=== PATIENT | male | born 1955 | race Caucasian/White ===

== ENCOUNTER → 2020-02-22 | Outpatient (CLI) | payer OTHER ==
[~2020-02-22] MED LIST: ANTIVERT12.5 MG PO; ASPIRIN EC81 MG PO; COVID-19 VACC, MRNA(MODERNA)/PF 100 MCG/0.5 ML VIAL IM ONE; COZAAR100 MG PO; CRESTOR10 MG PEG; DIOVAN HCT 3201 EACH PO; HYDRALAZINE HCL10 MG PO; NIFEDIPINE ER30 M1 PO; PANTOPRAZOLE SO40 MG PO; VALSARTAN/HCTZ
== END ==
LOC: VACCPMC 17:30
DX: Z23 Encounter for immunization (principal); Z20.822 Contact with and (suspected) exposure to COVID-19

== ENCOUNTER → 2020-03-21 | Outpatient (CLI) | payer OTHER | END | DRG 951 | LOC: VACCPMC 09:09 | DX: Z23 Encounter for immunization (principal); Z20.822 Contact with and (suspected) exposure to COVID-19 | CPT/HCPCS: 0012A; 91301 ==